=== PATIENT | female | born 1955 | race Caucasian/White ===

== ENCOUNTER 2017-09-02 18:11 | Emergency (ER) | payer OTHER, SELFPAY ==
[2017-09-02 18:13] VITALS: BP 114/70; PULSE 68; RESP 17; TEMP 36.4; O2SAT 99; BMI 29.5
--- NOTE | 2017-09-02 18:56 | CT_ITS ---
STUDY: CT BRAIN WITHOUT CONTRAST REASON FOR EXAM: Female, 62 years old. Headaches for 2 days RADIATION DOSAGE (If Supplied By Facility): CTDIvol = ( 44.99 ) mGy, DLP = ( 762.36 ) mGycm TECHNIQUE: Transaxial CT imaging of the brain was performed without administration of intravenous contrast material. Individualized dose optimization techniques were used for this CT. COMPARISON: None. FINDINGS: No evidence for shift of midline structures, mass effect or compression of ventricles noted. No acute intra-articular extra-axial hemorrhage is seen. No abnormal intracranial fluid collections identified. Bilateral basal ganglia mineralization seen likely senescent Age-related mild cerebral fine loss. Calvarium is intact. Mild mucosal thickening of the ethmoid vessels. Mastoid air cells are essentially clear. IMPRESSION: No evidence for acute intracranial hemorrhage, mass effect or acute large territory infarcts. Electronically Signed: Bennett Villafana, at 19:50 EDT Tel , Service support , CT/Brain/Head without Contrast
--- NOTE | 2017-09-02 18:58 | ED.VISSUMM ---
- ER Visit Summary Date of Service: 09/02/17 Chief Complaint: [] Right-sided headache began yesterday History of Present Illness: The patient is a 62 F [] she began having a right-sided headache yesterday. 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 when she began having a right-sided headache intensified persisted all day, she had no other associated symptoms such as fever cough runny nose sore throat neck stiffness or paresthesias or skin rash no exposures of any kind, She does report that 2 weeks ago she was found to have suffered a tick bite to the left flank area and she has been on 2 weeks of antibiotics in that area of the tick bite is better she has no obvious signs of complications from a tick bite, she vomited last night the headache resolved she woke today and again had a headache and she came in for evaluation reports prior history for headaches that are migrainous but none recently so review of systems really unremarkable Physical Examination: [] Pain to the right temporal area her HEENT exam is unremarkable there is no specific pain to palpation her visual randall are intact her HEENT and cranial nerve and ocular exam are normal visual randall are normal the nose and throat and TMs are normal the neck is very supple the lungs are clear the heart tones are normal abdomen soft nontender she has normal strength all 4 extremities normal cranial nerve function normal speech NIH is 0, her skin there are 2 tiny dots to the left flank to represent the prior tick bites that she states are much better these are nontender no fluctuance just some's slight redness to the skin her joints so no signs of swelling or edema and again she has full range of motion of all major joints Test Results: [] Emergency Department Course and Treatment: [] Patient's labs and CT are otherwise unremarkable for her see the results in the reports, on reevaluation her headache is resolved is feeling better she wants to go home I explained her the exact etiology of her headache are unclear we discussed inpatient versus outpatient management she wants to go home she states she is feeling much better we discussed the concept of an occult process that is yet to be identified and the need for more definitive outpatient management and again she feels better wants to have that workup done as an outpatient, she will return for change in symptoms her doctor in 1-2 days Treatment Plan: [] Disposition: [] Home stable Impression: [] rt Sided headache resolved This note was generated with [employer] dictation software. It may contain incorrect words, spelling, and punctuation that were not noted in review of the chart prior to signing ED Disposition - Plan for ED Patient: Chief Complaint: Headache Referrals: Perico Contreras PA [Primary Care Provider] -
--- NOTE | 2017-09-02 19:01 | ED.DCSUM_ITS ---
- ER Visit Summary Date of Service: 09/02/17 Chief Complaint: [] Right-sided headache began yesterday History of Present Illness: The patient is a 62 F [] she began having a right- sided headache yesterday. 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 when she began having a right-sided headache intensified persisted all day, she had no other associated symptoms such as fever cough runny nose sore throat neck stiffness or paresthesias or skin rash no exposures of any kind, She does report that 2 weeks ago she was found to have suffered a tick bite to the left flank area and she has been on 2 weeks of antibiotics in that area of the tick bite is better she has no obvious signs of complications from a tick bite, she vomited last night the headache resolved she woke today and again had a headache and she came in for evaluation reports prior history for headaches that are migrainous but none recently so review of systems really unremarkable Physical Examination: [] Pain to the right temporal area her HEENT exam is unremarkable there is no specific pain to palpation her visual randall are intact her HEENT and cranial nerve and ocular exam are normal visual randall are normal the nose and throat and TMs are normal the neck is very supple the lungs are clear the heart tones are normal abdomen soft nontender she has normal strength all 4 extremities normal cranial nerve function normal speech NIH is 0 , her skin there are 2 tiny dots to the left flank to represent the prior tick bites that she states are much better these are nontender no fluctuance just some's slight redness to the skin her joints so no signs of swelling or edema and again she has full range of motion of all major joints Test Results: [] Emergency Department Course and Treatment: [] Patient's labs and CT are otherwise unremarkable for her see the results in the reports, on reevaluation her headache is resolved is feeling better she wants to go home I explained her the exact etiology of her headache are unclear we discussed inpatient versus outpatient management she wants to go home she states she is feeling much better we discussed the concept of an occult process that is yet to be identified and the need for more definitive outpatient management and again she feels better wants to have that workup done as an outpatient, she will return for change in symptoms her doctor in 1-2 days Treatment Plan: [] Disposition: [] Home stable Impression: [] rt Sided headache resolved This note was generated with [employer] dictation software. It may contain incorrect words, spelling, and punctuation that were not noted in review of the chart prior to signing ED Disposition - Plan for ED Patient: Chief Complaint: Headache Referrals: Perico Contreras PA [Primary Care Provider] -
[2017-09-02] MEDS: 0.9% Normal Saline 1,000 ML 999 ML IV (19:10)
[2017-09-02] MEDS: Morphine 4 MG/ML Syringe IV (19:10)
[2017-09-02] MEDS: proCHLORPERazine 10 MG/2 ML Vial IV (19:10)
[2017-09-02] MEDS: DiphenhydrAMINE 50 MG/ML Syringe 25 MG IV (19:11)
[2017-09-02 19:36] LABS: Absolute Lymphocyte Count 1.78 X10^3/ul (0.83-4.51); Absolute Neutrophil Count 4.7 X10^3/uL (2.0-7.7); Basophil# 0.02 X10^3/uL; Basophil% 0.3 % (0-1); Eosinophil# 0.07 X10^3/uL; Hematocrit 41.4 % (37-47); Hemoglobin 13.4 g/dl (12.0-15.0); Lymphocyte # 1.78 X10^3/ul (4.0); Lymphocyte % 25.9 % (19-41); Mean Corp Hgb Conc 32.4 g/gl (32-36); Mean Corpuscular Hgb 27.9 pg (27.0-32.0); Mean Corpuscular Volume 86.3 fL (81-99); Mean Platelet Vol. 8.7 fl (6.2-12.0); Monocyte# 0.31 X10^3/uL; Monocyte% 4.5 % (0-10); Neutrophil # 4.67 X10^3/uL (2.7-7.7); Neutrophil % 68.2 % (47-70); Platelet Count 305 K/mm3 (150-450); RBC Distribution Width CV 13.3 % (11.6-14.6); RBC Distribution Width SD 42.3 fl (35.1-43.9); White Blood Count 6.9 K/mm3 (4.4-11.0)
[2017-09-02 19:37] LABS: POSITIVE COUNT NO; POSITIVE DIFFERENTIAL NO; POSITIVE MORPHOLOGY NO
[2017-09-02 19:43] LABS: Anion Gap 9 (5-15); BUN 15 mg/dL (7-18); BUN/Creat Ratio 15.8 RATIO (10-20); Calcium,Total 8.9 mg/dL (8.5-10.1); Chloride 107 mmol/L (98-107); Creatinine, Serum 0.95 mg/dL (0.55-1.02); EST Glomerular Filtration Rate 63 mL/min (>60); Est Glom Filt Rate - Afr Amer 76 mL/min (>60); Estimated Creatinine Clearance 42.97 ml/min; Glucose 129 mg/dL (74-106); Potassium 3.2 mmol/L (3.5-5.1); Sodium Level 140 mmol/L (136-145)
[2017-09-02 20:00] LABS: Erythrocyte Sedimentation Rate 17 mm/hr (0-30)
[2017-09-02 20:57] VITALS: BP 112/64; PULSE 61; RESP 18; O2SAT 94
--- NOTE | 2017-09-02 21:35 | ED.DEP ---
ED Disposition - Plan for ED Patient: Chief Complaint: Headache Instructions: ED Cephalgia Unspecified Referrals: Perico Contreras PA [Primary Care Provider] -
== END 2017-09-02 21:52 | disposition home or self-care (01) ==
LOC: ED 19:36
PROVIDERS: Emergency Provider Emergency Medicine; PCP Physician Assistant
DX: R51 Headache (principal); R11.10 Vomiting, unspecified; F41.9 Anxiety disorder, unspecified; Z79.899 Other long term (current) drug therapy
CPT/HCPCS: 70450; 80048; 85025; 85652; 96361; 96374; 96375; 99282; J7030; A4216

== ENCOUNTER → 2024-04-25 | Outpatient (CLI) | payer MEDICARE, SELFPAY ==
[2024-04-25 15:06] LABS: Absolute Lymphocyte Count 1.89 X10^3/uL (0.83-4.51); Basophil# 0.05 X10^3/uL; Basophil% 0.8 % (0-1); Eosinophil# 0.11 X10^3/uL; Eosinophils% 1.7 % (0-5); Hematocrit 41.4 % (37-47); Hemoglobin 13.3 g/dL (12.0-15.0); Lymphocyte # 1.89 X10^3/ul (0.83-4.51); Lymphocyte % 29.6 % (19-41); Mean Corp Hgb Conc 32.1 g/dL (32-36); Mean Corpuscular Hgb 28.6 pg (27.0-32.0); Mean Platelet Vol. 8.9 fl (6.2-12.0); Monocyte# 0.33 X10^3/uL; Monocyte% 5.2 % (0-10); NRBC Flagged by Analyzer 0 % (0-5); Neutrophil # 3.99 X10^3/uL (2.7-7.7); Neutrophil % 62.5 % (47-70); Platelet Count 328 K/mm3 (150-450); RBC Distribution Width SD 42.7 fl (35.1-43.9); Red Blood Count 4.65 M/mm3 (4.2-5.4); White Blood Count 6.4 K/mm3 (4.4-11.0)
[2024-04-25 15:59] LABS: AST(SGOT) 14 U/L (15-37); Alanine Aminotransfer ALT/SGPT 25 U/L (13-56); Albumin, Serum 3.6 g/dL (3.2-5.0); Alkaline Phosphatase 56 U/L (45-117); Anion Gap 6 (5-15); BUN 12 mg/dL (7-18); BUN/Creat Ratio 11.7 RATIO (10-20); CPK Total, Creatine Kinase 67 U/L (26-192); Calcium,Total 9.4 mg/dL (8.5-10.1); Chloride 105 mmol/L (98-107); Creatinine, Serum 1.03 mg/dL (0.55-1.02); EST Glomerular Filtration Rate 56 mL/min (>60); Est Glom Filt Rate - Afr Amer 68 mL/min (>60); Globulin 3.5 g/dL (2.2-4.2); Glucose 97 mg/dL (74-106); Potassium 3.6 mmol/L (3.5-5.1); Protein, Total 7.1 g/dL (6.4-8.2); Rheumatoid Factor < 10.0 IU/mL (<15); Sodium Level 138 mmol/L (136-145)
[2024-04-29 16:08] LABS: ANTINUCLEAR ANTIBODIES DIRECT Negative (Negative); Anti-dsDNA Ab 1 IU/mL (0-9)
== END | disposition home or self-care (01) ==
PROVIDERS: PCP Clinical Nurse Specialist Adult Health; Referring Provider Physician Assistant; Visit Provider Physician Assistant
DX: L60.9 Nail disorder, unspecified (principal)
CPT/HCPCS: 36415; 80053; 82085; 82550; 85025; 86038; 86225; 86431